=== PATIENT | female | born 1940 | race Caucasian/White ===

== ENCOUNTER → 2016-07-23 | Outpatient (CLI) | payer OTHER ==
[~2016-07-23] MED LIST: ASPI81TA28 PO; CHOL100010 PO; CLON0.5T3 PO; CLOP1TAB15 PO; CO Q10 PO; COEN10CA2 PO; ESCI10TA17 PO; LEVO50TA PO; OMEGCAP2 PO; PRAVASTATIN PO; PRVC10 PO; TRAV0.00 OPB
== END | disposition home or self-care (01) ==
LOC: C.PAPS 16:33
PROVIDERS: ATTEND Family Medicine
DX: Z01.419 Encounter for gynecological examination (general) (routine) without abnormal findings (principal)

== ENCOUNTER → 2016-12-08 | Outpatient (CLI) | payer OTHER ==
--- NOTE | 2016-12-15 09:12 | MAMMOGRAPHY REPORT ---
UNILATERAL RIGHT DIGITAL DIAGNOSTIC MAMMOGRAM TOMOSYNTHESIS WITH CAD AND TARGETED RIGHT ULTRASOUND: CLINICAL HISTORY: 76 year-old woman presents for follow-up of a small 3 mm nodular asymmetry in the i nferior right breast, only seen on the MLO view, and no suspicious sonographic correlate. TECHNIQUE: Right breast tomosynthesis in addition to standard 2D mammography was performed. Current abiel luna was also evaluated with a Computer Aided Detection (CAD) system. COMPARISON: Comparison is made to exams dated: 06/04/2016 mammogram, 06/04/2016 ultrasound, 05/26/20 16 mammogram, 05/23/2015 mammogram, 05/22/2014 mammogram, and 05/19/2013 mammogram - [facility]. BREAST COMPOSITION: There are scattered areas of fibroglandular density in the right breast. FINDINGS: The small, 3.2 mm nodular asymmetry in the inferior, middle to anterior right breast on the MLO view is no longer clearly identified. No obvious mass is identified on the corresponding tomosy nthesis images. No new suspicious mass, architectural distortion or cluster of microcalcifications i s seen throughout the right breast. There is a stable 5 mm circumscribed mass in the far superior ri ght breast on the MLO view that is unchanged in size dating back to at least 02/15/2010, most likely an intramammary lymph node. Targeted ultrasound was performed in the inferior right breast. Sonographically normal tissue is see n without a discrete solid or cystic mass. IMPRESSION: ACR BI-RADS CATEGORY 2: BENIGN, TARGETED ULTRASOUND ACR BI-RADS CATEGORY 2: BENIGN Less prominent nodular asymmetry in the inferior right breast on the MLO view, and no suspicious sono graphic correlate. These findings confirm benignity and no further close follow-up is needed at this time. Recommend return to annual screening mammography schedule, due in May 2017. The patient will be out of town until September 2017 and I recommended mammography as soon as possible once she retu rns. Approximately 10% of breast cancers are not detected with mammography. A negative mammographic report should not delay biopsy if a clinically suggestive mass is present. Jessica Scott M.D. ay/:12/08/2016 12:13:13 Preventative Maintenance Technician: Linnette LEVY(Ericka)(Faviola), [facility] letter sent: Normal 1/2 BI-RADS Code: ACR BI-RADS Category 2: Benign Ultrasound BI-RADS: ACR BI-RADS Category 2: Benign
== END | disposition home or self-care (01) ==
LOC: C.MAMM 10:52
PROVIDERS: ATTEND Internal Medicine
DX: N64.89 Other specified disorders of breast (principal); R73.03 Prediabetes; E78.5 Hyperlipidemia, unspecified; E03.9 Hypothyroidism, unspecified

== ENCOUNTER → 2016-12-08 | Outpatient (CLI) | payer OTHER ==
[2016-12-08 11:44] LABS: ESTIMATED AVERAGE GLUCOSE 120 mg/dl; HA1C FLAG Normal (Normal)
[2016-12-08 11:50] LABS: ALT/SGPT 26 U/L (12-78); AST/SGOT 21 U/L (15-37); BLOOD UREA NITROGEN 14 mg/dl (7-18); BUN/CREATININE RATIO 15.9 (10-20); CALCIUM 9.1 mg/dl (8.5-10.1); CARBON DIOXIDE 24 mmol/L (21-32); CHLORIDE 110 mmol/L (98-107); CHOLESTEROL 179 mg/dl (0-200); CREATININE 0.87 mg/dl (0.60-1.20); GLUCOSE 99 mg/dl (70-99); POTASSIUM 4.1 mmol/L (3.5-5.1); SODIUM 142 mmol/L (136-145)
[2016-12-08 12:01] LABS: CHOLESTEROL/HDL RATIO 3.7; HDL CHOLESTEROL 48 mg/dl; LDL CHOLESTEROL CALCULATED 110 mg/dl; TRIGLYCERIDES 106 mg/dl (0-150); VERY LOW DENSITY LIPOPROT CALC 21 mg/dl
== END | disposition home or self-care (01) ==
LOC: C.LABBC 07:55
PROVIDERS: ATTEND Internal Medicine
DX: R73.03 Prediabetes (principal); E78.5 Hyperlipidemia, unspecified; E03.9 Hypothyroidism, unspecified

== ENCOUNTER → 2017-01-28 | Day surgery (SDC) | payer OTHER ==
[2017-01-15 14:53] VITALS: Ht 160 cm; Wt 72.7 kg
[~2017-01-28] VITALS: Ht 160 cm; Wt 72.7 kg
[~2017-01-28] MED LIST changes: -CO Q10 PO; -ESCI10TA17 PO; +LIDOCAINE HCL 2% 2 ML VIAL (20MG/ML) ONE; -PRAVASTATIN PO; +PROPOFOL IV EMULSION 10 MG/ML 20 ML VIAL IV ONE; +SODIUM CHLORIDE 0.9% 500ML 500 ML IV ONE
--- NOTE | 2017-01-28 14:37 | Endo History and Physical ---
History & Physical Date of Service: Jan 28, 2017. Chief Complaint: HISTORY OF POLYPS Referring Physician: DR PAYNE History of Present Illness 76 yo CF who presents for colonoscopy secondary to history of colon polyps. Past Medical History Osteoporosis, Arthritis, Reflux, High Cholesterol, Thyroid Disease, CVA/TIA, Depression Past Surgical History Hx Cardiac Surgery: Yes (INTERNAL [employer]) Hx Internal Defibrillator: No Hx Pacemaker: No Hx Abdominal Surgery: No Hx of Implantable Prosthesis: No Hx Post-Op Nausea and Vomiting: No Hx Cancer Surgery: Yes (BCC REMOVAL) Hx Thoracic Surgery: No Hx Orthopedic: No Hx Urinary Tract Surgery: No Family History None Social History Smoking Status: Never Smoker Hx Substance Use: No Hx Alcohol Use: Yes (OCCASIONAL) Allergies Coded Allergies: Ciprofloxacin (Verified Allergy, Unknown, irregular heartbeat, 01/28/17) Aspirin (Verified Adverse Reaction, Intermediate, palpitations, 01/28/17) Dipyridamole (Verified Adverse Reaction, Intermediate, palpitations, ) Current Medications Reported Home Medications Medications Dose Route/Sig Max Daily Dose Days Date Category Coenzyme Q10 (Coenzyme Q10 (Ubidecarenone)) 10 Mg Cap 1 Cap PO QAM 01/15/17 Reported Travatan Z (Travoprost) 0.004 % David 1 Drops OPB HS 01/15/17 Reported Pravastatin Sodium (Pravastatin Sod) 10 Mg Tab 1 Tab PO QPM 01/15/17 Reported Vitamin D (Cholecalciferol) 1,000 Unit Tab 1 Tab PO QPM 01/15/17 Reported Aspirin Ec (Aspirin) 81 Mg Tab 81 Mg PO QPM 01/15/17 Reported Plavix (Clopidogrel Bisulfate) 75 Mg Tab 75 Mg PO QPM 07/14/14 Reported Synthroid (Levothyroxine Sodium) 50 Mcg Tab 50 Mcg PO QAM 05/16/14 Reported Klonopin (Clonazepam) 0.5 Mg Tab 0.5 Mg PO HS PRN 11/22/13 Reported Fish Oil ([place]-3 Fatty Acids) 1 Cap Cap 1 Cap PO QAM 11/22/13 Reported Vital Signs Weight (Kilograms): 72.73 Height (Feet): 5 Height (Inches): 3 Physical Exam General Appearance: WD/WN, no apparent distress Respiratory/Chest: Auscultation: breath sounds normal Cardiovascular: Heart Auscultation: RRR Abdomen: Bowel Sounds: normal Inspection & Palpation: soft, non-distended, no tenderness, guarding & rebound Assessment and Plan Assessment: 76 yo CF who presents for colonoscopy secondary to history of colon polyps. Plan: Proceed with colonoscopy.
--- NOTE | 2017-01-28 15:26 | Discharge Instructions ---
Endoscopy Patient Instructions Date / Procedure(s) Performed Jan 28, 2017. Colonoscopy Allergy Information Coded Allergies: Ciprofloxacin (Verified Allergy, Unknown, irregular heartbeat, 01/28/17) Aspirin (Verified Adverse Reaction, Intermediate, palpitations, 01/28/17) Dipyridamole (Verified Adverse Reaction, Intermediate, palpitations, ) Discharge Date / Findings Jan 28, 2017. Diverticulosis Internal hemorrhoids Medication Instructions Stopped Medication(s): ASPIRIN 81MG 01/27 PLAVIX 01/23 OK to resume all medications today as prescribed Reported Home Medications Medications Dose Route/Sig Max Daily Dose Days Date Category Coenzyme Q10 (Coenzyme Q10 (Ubidecarenone)) 10 Mg Cap 1 Cap PO QAM 01/15/17 Reported Travatan Z (Travoprost) 0.004 % David 1 Drops OPB HS 01/15/17 Reported Pravastatin Sodium (Pravastatin Sod) 10 Mg Tab 1 Tab PO QPM 01/15/17 Reported Vitamin D (Cholecalciferol) 1,000 Unit Tab 1 Tab PO QPM 01/15/17 Reported Aspirin Ec (Aspirin) 81 Mg Tab 81 Mg PO QPM 01/15/17 Reported Plavix (Clopidogrel Bisulfate) 75 Mg Tab 75 Mg PO QPM 07/14/14 Reported Synthroid (Levothyroxine Sodium) 50 Mcg Tab 50 Mcg PO QAM 05/16/14 Reported Klonopin (Clonazepam) 0.5 Mg Tab 0.5 Mg PO HS PRN 11/22/13 Reported Fish Oil ([place]-3 Fatty Acids) 1 Cap Cap 1 Cap PO QAM 11/22/13 Reported Provider Instructions Activity Restrictions - No exercising or heavy lifting for 24 hours. - Do not drink alcohol the day of the procedure. - Do not drive a car or operate machinery until the day after the procedure. - Do not make any important decisions or sign important papers in 24 hours after the procedure. Following Day: - Return to full activity which may include returning to work/school. Diet Start your diet with liquids and light foods (jello, soup, juice, toast). Then eat your usual diet if not nauseated. Treatment For Common After Affects For mild abdominal pain, bloating, or excessive gas: - Rest - Eat lightly - Lie on right side Follow-Up Information Follow-up with DR PAYNE as scheduled Anesthesia Information What You Should Know You have had a procedure that required some medicine to reduce anxiety and discomfort. This treatment is called moderate sedation. After receiving the treatment, you may be sleepy, but you will be able to breathe on your own. The effects of the treatment may last for several hours. Follow these instructions along with Activity/Diet recommendations noted above: * Do NOT do anything where dizziness or clumsiness would be dangerous. * Rest quietly at home today, then you can be up and about tomorrow. * Have a responsible person stay with you the rest of today. * You may have had an I.V. today. If so, you may take the dressing off later today. Recommendations Call your doctor if: * Trouble breathing * Continuous vomiting for more than 24 hours * Temperature above 101 degrees * Severe abdominal pain or bloating * Pain not relieved by pain medicine ordered * There is increased drainage or redness from any incision * A large amount of rectal bleeding greater than 2-3 tablespoons. (If you had a polyp/s removed or have hemorrhoids, a small amount of blood - from the rectum is to be expected.) * You have any unanswered questions or concerns. IN THE EVENT OF A SERIOUS EMERGENCY, GO TO THE NEAREST EMERGENCY ROOM Your discharge instructions were prepared by provider Bhupinder Vaca. Patient Instructions Signature Page Dayana Herron Patient (or Guardian) Signature/Date: I have read and understand the instructions given to me by my caregivers. Caregiver/RN/Doctor Signature/Date: The above-named patient and/or guardian has received patient instructions on this date. + Original Patient Signature Page (only) stays with chart. Please make copy for patient.
--- NOTE | 2017-01-28 15:45 | Anesthesiology Progress Note ---
Anesthesia Post Op Note Date & Time Jan 28, 2017 at 15:45 Vital Signs Pain Intensity: 0 Vital Signs Past 12 Hours Date Time Temp Pulse Resp B/P (MAP) Pulse Ox O2 Delivery O2 Flow Rate FiO2 01/28/17 15:42 68 16 124/70 (88) 96 Room Air 01/28/17 15:27 68 12 94/65 (75) 97 Room Air 01/28/17 14:42 36.8 81 18 119/77 (91) 97 Room Air Notes Mental Status: alert / awake / arousable, participated in evaluation Pt Amnestic to Procedure: Yes Nausea / Vomiting: adequately controlled Pain: adequately controlled Airway Patency, RR, SpO2: stable & adequate BP & HR: stable & adequate Hydration State: stable & adequate Anesthetic Complications: no major complications apparent
[2017-01-28 15:57] VITALS: BP 134/71; PULSE 66; O2SAT 97
--- NOTE | 2017-01-29 00:15 | GI REPORT ---
Procedure Date: 01/28/2017 3:08 PM Procedure: Colonoscopy Indications: High risk colon cancer surveillance: Personal history of colonic polyps Medicines: Monitored Anesthesia Care Complications: No immediate complications. Estimated Blood Loss: Estimated blood loss: none. Procedure: Pre-Anesthesia Assessment: - Prior to the procedure, a History and Physical was performed, and patient medications and allergies were reviewed. The patient's tolerance of previous anesthesia was also reviewed. The risks and benefits of the procedure and the sedation options and risks were discussed with the patient. All questions were answered, and informed consent was obtained. Prior Anticoagulants: The patient last took aspirin 1 day and Plavix (clopidogrel) 5 days prior to the procedure. ASA Grade Assessment: III - A patient with severe systemic disease. After reviewing the risks and benefits, the patient was deemed in satisfactory condition to undergo the procedure. After I obtained informed consent, the scope was passed under direct vision. Throughout the procedure, the patient's blood pressure, pulse, and oxygen saturations were monitored continuously. The scope was introduced through the anus and advanced to the terminal ileum. The colonoscopy was performed without difficulty. The patient tolerated the procedure well. The quality of the bowel preparation was good. The terminal ileum, ileocecal valve, appendiceal orifice, and rectum were photographed. Findings: Multiple small-mouthed diverticula were found in the sigmoid colon. Non-bleeding internal hemorrhoids were found during retroflexion. The hemorrhoids were small. Impression: - Diverticulosis in the sigmoid colon. - Non-bleeding internal hemorrhoids. - No specimens collected. Recommendation: - Resume previous diet. - Continue present medications. - No repeat colonoscopy due to age and the absence of advanced adenomas. - Return to primary care physician as previously scheduled. Bhupinder Vaca, 01/28/2017 3:29:21 PM This report has been signed electronically. Note Initiated On: 01/28/2017 3:08 PM I attest to the content of the Intraoperative Record and orders documented therein, exceptions below
== END | disposition home or self-care (01) ==
LOC: C.GI 14:03
PROVIDERS: ATTEND Internal Medicine
DX: Z12.11 Encounter for screening for malignant neoplasm of colon (principal); K57.30 Diverticulosis of large intestine without perforation or abscess without bleeding; K64.8 Other hemorrhoids; Z86.010 Personal history of colon polyps; E78.00 Pure hypercholesterolemia, unspecified; K21.9 Gastro-esophageal reflux disease without esophagitis; E07.9 Disorder of thyroid, unspecified; M81.0 Age-related osteoporosis without current pathological fracture; F32.9 Major depressive disorder, single episode, unspecified; Z86.73 Personal history of transient ischemic attack (TIA), and cerebral infarction without residual deficits; Z79.82 Long term (current) use of aspirin; Z79.02 Long term (current) use of antithrombotics/antiplatelets; Z79.899 Other long term (current) drug therapy

== ENCOUNTER → 2017-09-29 | Outpatient (CLI) | payer OTHER ==
[~2017-09-29] MED LIST changes: -LIDOCAINE HCL 2% 2 ML VIAL (20MG/ML) ONE; -PROPOFOL IV EMULSION 10 MG/ML 20 ML VIAL IV ONE; -SODIUM CHLORIDE 0.9% 500ML 500 ML IV ONE
[2017-09-29 10:45] LABS: BASO % 0.2 %; BASO ABS # 0.01 K/uL (0-0.2); EOS % 4.5 %; EOS ABS # 0.23 K/uL (0-0.5); HEMATOCRIT 37.9 % (37-47); HEMOGLOBIN 12.9 g/dL (12.0-16.0); IG# 0.01 K/uL (0.00-0.02); LYMPH % 34.7 %; LYMPH ABS # 1.77 K/uL (1.2-3.4); MEAN CELL VOLUME 89.8 fL (80-100); MEAN CORPUSCULAR HEMOGLOBIN 30.6 pg (25-34); MEAN PLATELET VOLUME 9.5 fL (7.4-10.4); MONO % 9.6 %; MONO ABS # 0.49 K/uL (0.11-0.59); NEUT % 50.8 %; NEUT ABS # 2.59 K/uL (1.4-6.5); PLATELET COUNT 270 K/uL (130-400); RED CELL DISTRIBUTION WIDTH CV 13.4 % (11.5-14.5); RED CELL DISTRIBUTION WIDTH SD 44.1 fL (36.4-46.3)
[2017-09-29 11:03] LABS: ALBUMIN 3.8 gm/dl (3.4-5.0); ALT/SGPT 26 U/L (12-78); AST/SGOT 27 U/L (15-37); BLOOD UREA NITROGEN 14 mg/dl (7-18); CARBON DIOXIDE 26 mmol/L (21-32); GLUCOSE 100 mg/dl (70-99); POTASSIUM 4.1 mmol/L (3.5-5.1); SODIUM 140 mmol/L (136-145)
[2017-09-29 11:06] LABS: HEMOGLOBIN A1C 5.8 % (4.5-5.6)
[2017-09-29 11:06] LABS: ALKALINE PHOSPHATASE 61 U/L (45-117); TOTAL PROTEIN 7.4 gm/dl (6.4-8.2)
== END | disposition home or self-care (01) ==
LOC: C.LABBC 07:33
PROVIDERS: ATTEND Nurse Practitioner Primary Care
DX: E03.8 Other specified hypothyroidism (principal); E78.4 Other hyperlipidemia; I63.8 Other cerebral infarction; M85.88 Other specified disorders of bone density and structure, other site; R73.03 Prediabetes

== ENCOUNTER → 2017-09-30 | Outpatient (CLI) | payer OTHER ==
--- NOTE | 2017-10-01 14:44 | MAMMOGRAPHY REPORT ---
BILATERAL DIGITAL SCREENING MAMMOGRAM TOMOSYNTHESIS WITH CAD: 09/30/2017 CLINICAL HISTORY: Routine screening. Patient has no complaints. TECHNIQUE: Breast tomosynthesis in addition to standard 2D mammography was performed. Current study was also evaluated with a Computer Aided Detection (CAD) system. COMPARISON: Comparison is made to exams dated: 12/08/2016 mammogram, 12/08/2016 ultrasound, 06/04/2016 m ammogram, 06/04/2016 ultrasound, 05/26/2016 mammogram, and 05/23/2015 mammogram - [facility]. BREAST COMPOSITION: There are scattered areas of fibroglandular density in both breasts. FINDINGS: A rectangular metallic loop recording device projects over the lower inner far posterior le ft breast. The glandular pattern is similar to prior mammograms. There are mild vascular calcificat ions. No new suspicious mass, architectural distortion or cluster of microcalcifications is seen. IMPRESSION: ACR BI-RADS CATEGORY 1: NEGATIVE There is no mammographic evidence of malignancy. A 1 year screening mammogram is recommended. The pa tient will receive written notification of the results. Approximately 10% of breast cancers are not detected with mammography. A negative mammographic report should not delay biopsy if a clinically suggestive mass is present. Jessica Scott M.D. ay/:09/30/2017 15:40:23 Director Of Curriculum And Instruction: Lisa LEVY(Ericka)(M), [facility] letter sent: Normal 1/2 BI-RADS Code: ACR BI-RADS Category 1: Negative
== END | disposition home or self-care (01) ==
LOC: C.MAMM 13:52
PROVIDERS: ATTEND Obstetrics & Gynecology
DX: Z12.31 Encounter for screening mammogram for malignant neoplasm of breast (principal)

== ENCOUNTER → 2017-10-12 | Outpatient (CLI) | payer OTHER | END | disposition home or self-care (01) | LOC: C.LABBC 09:00 | PROVIDERS: ATTEND Internal Medicine | DX: I48.0 Paroxysmal atrial fibrillation (principal) ==

== ENCOUNTER 2017-10-22 07:40 | Day surgery (SDC) | payer OTHER ==
[~2017-10-22] VITALS: Ht 160 cm; Wt 72.5 kg
[2017-10-22 08:25] VITALS: BP 123/75; PULSE 82; TEMP 36.9; O2SAT 97; Ht 160 cm; Wt 72.5 kg
--- NOTE | 2017-10-22 08:27 | History & Physical Bridge Note ---
H&P Re-Evaluation Bridge Note: I have examined the patient, reviewed the History & Physical and in the interval since the performance of the History & Physical I have noted the following changes of clinical significance: No changes noted. I reviewed the indications, procedure, risks and alternatives of loop recorder explantation with her and she understands and agrees to proceed. Consent obtained. I reviewed the indications and risks of conscious sedation and she understands. Consent obtained.
--- NOTE | 2017-10-22 09:07 | Pre Sedation Assessment ---
Pre Sedation Assessment General Date of Sedation: October 22, 2017. Vital Signs Past 12 Hours Date Time Temp Pulse Resp B/P (MAP) Pulse Ox O2 Delivery O2 Flow Rate FiO2 10/22/17 08:25 36.9 82 16 123/75 (91) 97 Room Air Review Cardiovascular: regular rate, rhythm, no edema, no gallop, no JVD, no murmur, normal peripheral pulses Lungs: chest non-tender, lungs clear, normal breath sounds, no respiratory distress, no accessory muscle use Pre-Sedation Airway Assessment Smoking Status: Never Smoker Hx of Sleep Apnea: No Hx of difficult intubation: No Short Thick Neck: No Thyro-mental Distance: > 3 Finger Breadths Oral Cavity: Capped Teeth Mallampati Classification: Class II ASA Classification: Class II NPO Status Date of Last Intake of Fluids: October 22, 2017 Time of Last Intake of Fluids: 0600 Date of Last Intake of Solids: October 21, 2017 Time of Last Intake of Solids: 1900 Procedure Planning Contraindications for Sedation: None Current Medications Reviewed: Yes Notes The planned sedation has been discussed with the patient. Informed Consent was obtained. I have identified the patient, determined the appropriateness of sedation and have assessed the patient immediately prior to the procedure. All medicine(s) and interventions are by my order.
[2017-10-22] MEDS ORDERED: LIDOCAINE HCL 1% 20 ML VIAL ONE (09:12)
[2017-10-22] MEDS ORDERED: BACITRACIN OINT 0.9 GM PKT ONE (09:12)
--- NOTE | 2017-10-22 09:53 | [facility] Operative Report ---
Operative Report Operative Date October 22, 2017. Pre-Operative Diagnosis Loop recorder battery depletion Post-Operative Diagnosis Same Procedure(s) Performed Loop recorder removal Surgeon Dr. Merrill Director Account Management Surgeon(s) None Estimated Blood Loss 2 cc Findings Uncomplicated explantation Specimens Loop recorder, return to [facility] Anesthesia Local without sedation Complication(s) None Disposition [facility] Description of Procedure After obtaining informed consent for the procedure, the patient was brought to the laboratory having had nothing by mouth after midnight. The patient was prepped and draped in the standard sterile manner for a loop recorder removal. The area was infiltrated with 1% lidocaine local anesthetic and a 1.5 cm incision was made through the old implant scar and carried down to the loop recorder. The loop recorder was dissected free of tissue and explanted. The incision was closed with a subcutaneous continuous closure of 4-0 Vicryl followed by running subcuticular skin closure of 4-0 Vicryl. Steri-Strips were applied and bacitracin ointment was placed on the incision. A dressing was applied. I attest to the content of the Intraoperative Record and any orders documented therein. Any exceptions are noted below.
[2017-10-22 09:55] VITALS: BP 134/76; PULSE 63; TEMP 37; O2SAT 95
--- NOTE | 2017-10-22 09:55 | Discharge Instructions ---
Discharge Instructions Date of Service October 22, 2017. Admission Reason for Admission: Loop recorder at end of life Discharge Discharge Diagnosis / Problem: Loop recorder explantation Discharge Goals Goal(s): Therapeutic intervention Activity Recommendations Activity Limitations: resume your previous activity . Instructions / Follow-Up Instructions / Follow-Up ACTIVITY RECOMMENDATIONS: * Do not raise affected arm over head for 2 weeks. SPECIAL CARE INSTRUCTIONS: * If bleeding occurs, apply direct pressure to area for 5 minutes. * Call your doctor if you have severe pain, fever, drainage or bleeding at site. * Keep dressing on and dry. * Keep any scheduled doctor's appointment. FOLLOW UP VISIT: Dr. Merrill Monday, October 23, 2017, 10:15 AM. Current Hospital Diet Patient's current hospital diet: Discharge Diet Recommended Diet: AHA Diet (Heart Healthy) Pending Studies Studies pending at discharge: no Laboratory Results Hemoglobin A1c Test 09/29/17 07:42 Range/Units Estimated Average Glucose 120 mg/dl Hemoglobin A1c 5.8 H 4.5-5.6 % Lipid Panel Test 09/29/17 07:42 Range/Units Triglycerides Level 90 0-150 mg/dl Cholesterol Level 189 0-200 mg/dl HDL Cholesterol 45 mg/dl Cholesterol/HDL Ratio 4.2 LDL Cholesterol, Calculated 126 mg/dl Medical Emergencies . Who to Call and When: Medical Emergencies: If at any time you feel your situation is an emergency, please call 911 immediately. . Non-Emergent Contact Non-Emergency issues call your: Primary Care Provider . . "Provider Documentation" section prepared by Eliezer Merrill. .
[2017-10-22 10:00] VITALS: BP 117/83; PULSE 75; TEMP 36.8; O2SAT 95
[2017-10-22] MEDS ORDERED: ACETAMINOPHEN 325 MG TAB PO PRN (10:00)
== END 2017-10-22 10:50 | disposition home or self-care (01) ==
LOC: C.ACU 07:40
PROVIDERS: ATTEND Internal Medicine Cardiovascular Disease
DX: Z45.09 Encounter for adjustment and management of other cardiac device (principal); R00.2 Palpitations; I48.0 Paroxysmal atrial fibrillation; I10 Essential (primary) hypertension; E78.5 Hyperlipidemia, unspecified; E03.9 Hypothyroidism, unspecified; Z79.82 Long term (current) use of aspirin; Z79.899 Other long term (current) drug therapy; Z82.62 Family history of osteoporosis; Z80.8 Family history of malignant neoplasm of other organs or systems; Z82.79 Family history of other congenital malformations, deformations and chromosomal abnormalities; Z88.1 Allergy status to other antibiotic agents